=== PATIENT | female | born 1995 | race Caucasian/White ===

== ENCOUNTER 2017-10-17 02:44 | Emergency (ER) | payer SELFPAY ==
[~2017-10-17] VITALS: Ht 170.2 cm; Wt 52.2 kg
[~2017-10-17 02:44] MED LIST: ALPR2TAB3 PO; DULO20 PO
[2017-10-17 02:45] VITALS: BP 139/82; PULSE 88; RESP 16; TEMP 98; O2SAT 99
--- NOTE | 2017-10-17 04:04 | PD ---
HPI Chief Complaint: Bite or Sting Time Seen by Provider: 03:39 Travel History International Travel<30 days: No Contact w/Intl Traveler<30days: No Traveled to known affect area: No History of Present Illness HPI The patient is a 22-year-old female that was bitten by a small brown spider. She could not recognize whether was a brown recluse or if it was a brown spider. The bite is minimal and no necrotic areas present at this time. Her last tetanus shot was 1 year ago. Her pain is minimal. She denies any nausea or abdominal pain. She states there is no possibility of . PFSH Past Medical History Hx Anticoagulant Therapy: No ADHD: Yes Autoimmune Disease: No Weight (Kg): 3 Anxiety: Yes ( PANIC DISORDER) Depression: Yes Cancer: No Cardiovascular Problems: Yes Chemotherapy: No Cerebrovascular Accident: No Diabetes: No Diminished Hearing: No Endocrine: No Genitourinary: Yes (PRONE TO UTI'S) Headaches: Yes Immune Disorder: No Implanted Vascular Access Dvce: No Musculoskeletal: No Neurologic: Yes Psychiatric: Yes (DEPRESSION) Respiratory: No Immunizations Current: No Migraines: Yes Radiation Therapy: No Seizures: No Thyroid Disease: No ?: Not LMP: 10/12/17 : 2 Para: 1 Miscarriage: 1 Past Surgical History Section: No Ear Surgery: Yes (Repair from dog attack ) Eye Surgery: Yes Gynecologic Surgery: Yes (cyst from bikini line removed x 2, July 2014) Hysterectomy: No Oral Surgery: Yes Other Surgery: Yes Social History Alcohol Use: No Tobacco Use: Yes Substance Use: No (PT DENIES) Allergies-Medications (Allergen,Severity, Reaction): Coded Allergies: No Known Allergies (Unverified , 01/31/16) Reported Meds & Prescriptions Reported Meds & Active Scripts Active Review of Systems Except as stated in HPI: all other systems reviewed are Neg Physical Exam Narrative GENERAL: Well-nourished, well-developed patient. SKIN: Focused skin assessment warm/dry. There is a 12 mm diameter erythematous area with a small 2 mm red dots which represents a bite in the center. There is no red streak present and there is no necrosis. HEAD: Normocephalic. EYES: No scleral icterus. No injection or drainage. NECK: Supple, trachea midline. No JVD or lymphadenopathy. CARDIOVASCULAR: Regular rate and rhythm without murmurs, gallops, or rubs. RESPIRATORY: Breath sounds equal bilaterally. No accessory muscle use. GASTROINTESTINAL: Abdomen soft, non-tender, nondistended. MUSCULOSKELETAL: No cyanosis, or edema. BACK: Nontender without obvious deformity. No CVA tenderness. Data Data Last Documented VS Vital Signs Date Time Temp Pulse Resp B/P (MAP) Pulse Ox O2 Delivery O2 Flow Rate FiO2 10/17/17 02:45 98.0 88 16 139/82 (101) 99 MDM Medical Decision Making Medical Screen Exam Complete: Yes Emergency Medical Condition: Yes Medical Record Reviewed: Yes Differential Diagnosis Unknown spider bite-possible brown recluse, possible brown spider bite Narrative Course The patient was told if this bite area starts to turn black and necrosis and enlarges that this may represent a brown recluse bite. At this time the bite looks very innocuous and is not causing her any significant discomfort. Diagnosis Primary Impression: Spider bite Additional Instructions: As we discussed, the worst thing that this could be as a brown recluse bite. They can necrosis in the center and enlarged. There may be a small black area there but a brown spider bite would create a large black area. Please return to emergency department if you have any problems. Med/Other Pt SpecificInfo: No Change to Meds Disposition: 01 DISCHARGE HOME Condition: Stable Angel Lynch MD Oct 17, 2017 04:04
== END 2017-10-17 04:20 | disposition home or self-care (01) ==
LOC: PHED 02:44
DX: T63.301A Toxic effect of unspecified spider venom, accidental (unintentional), initial encounter (principal); Z72.0 Tobacco use
CPT/HCPCS: 99282